=== PATIENT | male | born 1985 | race Two or more races ===

== ENCOUNTER 2016-03-29 11:35 | Emergency (ER) | payer OTHER ==
--- NOTE | 2016-03-29 13:56 | RAD ---
HISTORY: Headache, status post head trauma COMPARISONS: None TECHNIQUE: Multiple contiguous axial CT scans were obtained of the head without intravenous contrast. FINDINGS: HEMORRHAGE/INFARCT: There is no hemorrhage or acute infarct. MASSES/SHIFT: There is no mass or shift. EXTRA-AXIAL SPACES: There are no extra-axial fluid collections. SULCI AND VENTRICLES: The sulci and ventricles are normal in size and position for the patient's stated age. CEREBRUM: There are no focal parenchymal abnormalities. BRAINSTEM: There are no focal parenchymal abnormalities. CEREBELLUM: There are no focal parenchymal abnormalities. VESSELS: The vessels are grossly normal. PARANASAL SINUSES: The paranasal sinuses are clear. ORBITS: The orbits are unremarkable. BONES AND SOFT TISSUE: No bone or soft tissue abnormalities are noted. OTHER: None IMPRESSION: NO ACUTE INTRACRANIAL PATHOLOGY.
--- NOTE | 2016-03-29 14:15 | ED ---
Agustín Shelton Billy, scribed for Lars Martinez MD on 03/29/16 at 1314 . Head Injury - HPI Summary HPI Summary: Patient is a 30 year-old male coming to [facility] for evaluation of a head injury at 0900 this morning. He states that he was walking on the sidewalk when he slipped on snow, fell onto his buttocks, and hit the back of his head against the pavement. Denies any LOC, and he was able to get up and walk to his destination on [facility]. He states he had a headache after the fall, which was significantly improved with ibuprofen. His co-worker, who is here in the ED with him, states that he was somewhat lethargic this morning. He denies any nausea, vomiting, or headache at this time in the ED. Denies any weakness in the extremities. His only complaint at this time is mild soreness of the buttocks. Negative bloodthinners. Previously healthy. - History Of Current Complaint Chief Complaint: EDHeadInjury Stated Complaint: POSSIBLE HEAD INJURY Time Seen by Provider: 03/29/16 12:59 Hx Obtained From: Patient Mechanism Of Injury: Fall From A Standing Position Onset/Duration: Started Hours Ago Severity Currently: Mild Severity Initially: Moderate Pain Intensity: 3 Pain Scale Used: 0-10 Numeric Location of Head Injury: Occipital Aggravating Factor(s): Other: - none Alleviating Factor(s): OTC Medications` - ibuprofen Associated Signs And Symptoms: Headache, Other: - Lethargy PMH/Surg Hx/FS Hx/Imm Hx Endocrine/Hematology History: Denies: Hx Diabetes Cardiovascular History: Denies: Hx Myocardial Infarction Infectious Disease History: No Infectious Disease History: Denies: Traveled Outside the in Last 30 Days - Family History Known Family History: Negative: Cardiac Disease, Hypertension, Diabetes - Social History Alcohol Use: None Hx Substance Use: No Substance Use Type: Reports: None Hx Tobacco Use: No Smoking Status (MU): Never Smoked Tobacco Review of Systems Positive: Other - lethargy Positive: Other - sore buttock Positive: Headache All Other Systems Reviewed And Are Negative: Yes Physical Exam - Summary Physical Exam Summary: VITAL SIGNS: Reviewed. GENERAL: Patient is a well developed and nourished male who is lying comfortable in the stretcher. Patient is not in any acute respiratory distress. HEAD AND FACE: No signs of trauma. No ecchymosis, hematomas or skull depressions. No sinus tenderness. EYES: PERRLA, EOMI x 2, No injected conjunctiva, no nystagmus. EARS: Hearing grossly intact. Ear canals and tympanic membranes are within normal limits. No Hemotympanum. MOUTH: Oropharynx within normal limits. NECK: Supple, trachea is midline, no adenopathy, no JVD, no carotid bruit, no c- spine tenderness, neck with full ROM. CHEST: Symmetric, no tenderness at palpation LUNGS: Clear to auscultation bilaterally. No wheezing or crackles. CVS: Regular rate and rhythm, S1 and S2 present, no murmurs or gallops appreciated. ABDOMEN: Soft, non-tender. No signs of distention. No rebound no guarding, and no masses palpated. Bowel sounds are normal. EXTREMITIES: FROM in all major joints, no edema, no cyanosis or clubbing. NEURO: Alert and oriented x 3. No acute neurological deficits. Speech is normal and follows commands. SKIN: Dry and warm Triage Information Reviewed: Yes Vital Signs On Initial Exam: Initial Vitals Temp Pulse Resp BP Pulse Ox 98.1 F 76 12 150/73 98 03/29/16 11:37 03/29/16 11:37 03/29/16 11:37 03/29/16 11:37 03/29/16 11:37 Vital Signs Reviewed: Yes Diagnostics - Vital Signs Vital Signs Temp Pulse Resp BP Pulse Ox 03/29/16 12:45 97.6 F 71 20 161/68 100 03/29/16 11:37 98.1 F 76 12 150/73 98 - Laboratory Lab Statement: Any lab studies that have been ordered have been reviewed, and results considered in the medical decision making process. - CT brain CT Interpretation: No Acute Changes CT Interpretation Completed By: Radiologist Re-Evaluation - Re-Evaluation First Eval Re-Evaluation Time: 14:04 Change: Unchanged Comment: Patient continues to be asymptomatic. CT brain findings reviewed. Plan for discharge discussed with the patient. Head Injury Course/Dx Assessment/Plan: Patient is a 30 year-old male coming to [facility] for evaluation of a head injury at 0900 this morning. He states that he was walking on the sidewalk when he slipped on snow, fell onto his buttocks, and hit the back of his head against the pavement. Denies any LOC, and he was able to get up and walk to his destination on [facility]. He states he had a headache after the fall, which was significantly improved with ibuprofen. His co-worker, who is here in the ED with him, states that he was somewhat lethargic this morning. He denies any nausea, vomiting, or headache at this time in the ED. Denies any weakness in the extremities. His only complaint at this time is mild soreness of the buttocks. Negative bloodthinners. Previously healthy. CT of the brain shows no intracranial pathology. He continues to be neurologically intact. Therefore, he will be discharged home to follow up with PCP. He was given instructions for head contusion. He is to return to the ED with any developing lethargy, weakness, nausea or vomiting, or visual disturbances. He understands and agrees. He is hemodynamically stable, A&Ox3. - Diagnoses Differential Diagnosis/HQI/PQRI: Cerebral Contusion, Contusion Provider Diagnoses: Head contusion Discharge - Discharge Plan Condition: Stable Disposition: HOME Patient Education Materials: Scalp Contusion in Adults (ED) Referrals: [facility] RUTH Zarate [Primary Care Provider] - The documentation as recorded by the Agustín hay Billy accurately reflects the service I personally performed and the decisions made by me, Lars Martinez MD.
[2016-03-29 14:37] VITALS: BP 139/78
== END 2016-03-29 14:50 | disposition home or self-care (01) ==
LOC: ED 11:35
DX: S00.93XA Contusion of unspecified part of head, initial encounter (principal); R51 Headache; R53.83 Other fatigue; W19.XXXA Unspecified fall, initial encounter; Y93.9 Activity, unspecified; Y92.9 Unspecified place or not applicable
CPT/HCPCS: 70450; 99282

== ENCOUNTER 2019-05-15 17:24 | Emergency (ER) | payer OTHER ==
--- NOTE | 2019-05-15 20:05 | ED ---
HPI Chest Pain - HPI Summary HPI Summary: Patient complains of sudden onset 3/10 intermittent sternal chest pressure while walking up hill today at 2:30 PM. Denies prior history of same symptoms. CP described as pressure, intermittent, occurring every few minutes, lasting seconds at a time, ongoing since 2:30 but improved since onset. States associated shortness of breath. Denies trauma, heavy lifting, fever, cough, sore throat, and/V/D, abdominal pain, change in urine, change in BM or recent travel, known cold exposure. Medical history is none. Nonsmoker. Denies EtOH or recreational drug use. - History of Current Complaint Chief Complaint: EDChestWallPain Time Seen by Provider: 05/15/19 20:02 Hx Obtained From: Patient Onset/Duration: Started Hours Ago Timing: Intermittent, Lasting Seconds Initial Severity: Mild Current Severity: Mild Pain Intensity: 3 Pain Scale Used: 0-10 Numeric Chest Pain Location: Mid Sternal Chest Pain Radiates: No Character: Pressure/Squeezing Aggravating Factor(s): Exertion, Deep Breaths Alleviating Factor(s): Rest, Position Associated Signs and Symptoms: Positive: Chest Pain, Shortness of Breath - Allergy/Home Medications Allergies/Adverse Reactions: Allergies Allergy/AdvReac Type Severity Reaction Status Date / Time No Known Allergies Allergy Verified 05/15/19 18:00 Home Medications: Home Medications NK [No Home Medications Reported] 05/15/19 [History Confirmed 05/15/19] PMH/Surg Hx/FS Hx/Imm Hx Endocrine/Hematology History: Denies: Hx Diabetes Cardiovascular History: Denies: Hx Myocardial Infarction Respiratory History: Denies: Hx Chronic Obstructive Pulmonary Disease (COPD) History: Denies: Hx Dialysis Sensory History: Denies: Hx Eye Prosthesis Opthamlomology History: Denies: Hx Legally Blind EENT History: Denies: Hx Deafness Neurological History: Denies: Hx Dementia Infectious Disease History: No Infectious Disease History: Denies: Traveled Outside the [place] in Last 30 Days - Family History Known Family History: Negative: Cardiac Disease, Hypertension, Diabetes - Social History Alcohol Use: None Hx Substance Use: No Substance Use Type: Reports: None Hx Tobacco Use: No Smoking Status (MU): Never Smoked Tobacco Review of Systems Constitutional: Negative Eyes: Negative ENT: Negative Positive: Chest Pain Positive: Shortness Of Breath Gastrointestinal: Negative Genitourinary: Negative Musculoskeletal: Negative Skin: Negative Neurological/Mental Status: Negative Psychological: Normal All Other Systems Reviewed And Are Negative: Yes Physical Exam - Summary Physical Exam Summary: Chest pain not reproducible. No evidence of ecchymosis, erythema, deformity, swelling noted chest. Triage Information Reviewed: Yes Vital Signs On Initial Exam: Initial Vitals Temp Pulse Resp BP Pulse Ox 97.7 F 93 16 135/97 98 05/15/19 17:57 05/15/19 17:57 05/15/19 17:57 05/15/19 17:57 05/15/19 17:57 Vital Signs Reviewed: Yes Appearance: Positive: Well-Appearing Skin: Positive: Warm Head/Face: Positive: Normal Head/Face Inspection Eyes: Positive: Normal ENT: Positive: Normal ENT inspection Neck: Positive: Supple Respiratory/Lung Sounds: Positive: Clear to Auscultation Cardiovascular: Positive: Normal Abdomen Description: Positive: Nontender Musculoskeletal: Positive: Normal Neurological: Positive: Normal Psychiatric: Positive: Normal AVPU Assessment: Alert - Gill Coma Scale Best Eye Response: 4 - Spontaneous Best Motor Response: 6 - Obeys Commands Best Verbal Response: 5 - Oriented Coma Scale Total: 15 Procedures - Sedation Patient Received Moderate/Deep Sedation with Procedure: No Diagnostics - Vital Signs Vital Signs Temp Pulse Resp BP Pulse Ox 05/15/19 19:39 97.1 F 73 18 118/81 99 05/15/19 17:57 97.7 F 93 16 135/97 98 - Laboratory Result Diagrams: 05/15/19 18:00 05/15/19 18:01 Lab Statement: Any lab studies that have been ordered have been reviewed, and results considered in the medical decision making process. Chest Pain Course/Dx - Course Course Of Treatment: Patient complains of sudden onset 3/10 intermittent sternal chest pressure while walking up hill today at 2:30 PM. Denies prior history of same symptoms. CP described as pressure, intermittent, occurring every few minutes, lasting seconds at a time, ongoing since 2:30 but improved since onset. States associated shortness of breath. Denies trauma, heavy lifting, fever, cough, sore throat, and/V/D, abdominal pain, change in urine, change in BM or recent travel, known cold exposure. Medical history is none. Nonsmoker. Denies EtOH or recreational drug use. Patient states pain increased again after eating here in the ED. Vital signs within normal limits. Creatinine 1.31. Labs otherwise unremarkable. Chest x-ray unremarkable. EKG sinus rhythm, rate of 68, normal P axis. - Diagnoses Provider Diagnoses: Pleurisy Discharge ED - Sign-Out/Discharge Documenting (check all that apply): Patient Departure - Discharge Plan Condition: Stable Disposition: HOME Patient Education Materials: Pleurisy (ED) Referrals: No Primary Care Phys,NOPCP [Primary Care Provider] - Additional Instructions: Take ibuprofen 600 mg every 6 hours for 2 days. Follow-up with primary care. Return to the ED for any new or worsening symptoms. - Billing Disposition and Condition Condition: STABLE Disposition: Home
[2019-05-15 20:49] LABS: ABS Basophils 0.1 10^3/ul (0-0.2); ABS Eosinophils 0.2 10^3/ul (0-0.6); ABS Lymphocytes 2.7 10^3/ul (1.0-4.8); ABS Monocytes 0.6 10^3/ul (0-0.8); ABS Neutrophils 3.6 10^3/ul (1.5-7.7); Eosinophil % 2.8 %; Hematocrit 47 % (42-52); Hemoglobin 16.3 g/dL (14.0-18.0); Mean Corpuscular HGB Conc 35 g/dL (31-36); Mean Corpuscular Hemoglobin 31 pg (27-31); Mean Corpuscular Volume 89 fL (80-94); Nucleated Red Blood Cells % 0.1; Red Blood Count 5.23 10^6 /uL (4.18-5.48); Red Cell Distribution Width 14 % (10-15); White Blood Count 7.2 10^3/uL (3.5-10.8)
[2019-05-15 21:04] LABS: Large Platelets Present; Mean Platelet Volume 12.6 fL (7.4-10.4); Platelet Count 142 10^3/uL (150-450)
[2019-05-15 21:06] LABS: Albumin 4.4 g/dL (3.2-5.2); Albumin/Globulin Ratio 1.5 (1-3); BUN/Creatinine Ratio 11.5 (8-20); Calcium 9.8 mg/dL (8.6-10.3); EGFR African American 75.3 (>60); EGFR Non-African American 62.3 (>60); Globulin 2.9 g/dL (2-4); Total Bilirubin 0.4 mg/dL (0.2-1.0); Total Protein 7.3 g/dL (6.4-8.9)
[2019-05-15 21:28] LABS: Potassium 4.5 mmol/L (3.5-5.0)
[2019-05-15] MEDS ORDERED: Lidocaine 2% VISCOUS* 15 ML UDC PO ONE (21:59)
[2019-05-15] MEDS ORDERED: Al Hydrox/Mg Hydrox/Simet LIQ* 30 ML UDC PO ONE (21:59)
[2019-05-15 22:38] VITALS: BP 140/90
== END 2019-05-15 22:38 | disposition home or self-care (01) ==
LOC: ED 17:24
DX: R09.1 Pleurisy (principal); R07.9 Chest pain, unspecified; R06.02 Shortness of breath; R94.31 Abnormal electrocardiogram [ECG] [EKG]
CPT/HCPCS: 36415; 71045; 80053; 84484; 85025; 93005; 99283; A9270-GY